=== PATIENT | female | born 1990 | race Caucasian/White ===

== ENCOUNTER 2017-01-24 19:30 | Emergency (ER) | payer OTHER ==
[~2017-01-24] VITALS: Ht 175.3 cm; Wt 56.9 kg
[2017-01-24 19:32] VITALS: BP 133/76
[2017-01-24] MEDS ORDERED: DEXAMETHASONE 4 MG TABLET ONE (19:48)
[2017-01-24] MEDS ORDERED: DEXAMETHASONE 4 MG TABLET PO ONE (20:00)
== END 2017-01-24 20:04 | disposition home or self-care (01) ==
LOC: ED 19:55
DX: J03.00 Acute streptococcal tonsillitis, unspecified (principal)
CPT/HCPCS: 99282

== ENCOUNTER → 2020-12-09 | Outpatient (CLI) | payer BC | END | disposition home or self-care (01) | LOC: RAD 10:37 | PROVIDERS: ATTEND Nurse Practitioner Family | DX: R11.0 Nausea (principal); R63.4 Abnormal weight loss | CPT/HCPCS: 78264; A9541 ==